=== PATIENT | male | born 2000 | race Caucasian/White ===

== ENCOUNTER 2024-05-22 07:46 | Emergency (ER) | payer OTHER, SELFPAY ==
[2024-05-22 07:55] VITALS: BP 121/82; PULSE 85; RESP 18; TEMP 36.9; O2SAT 100; BMI 26.1
--- NOTE | 2024-05-22 08:09 | ED_ITS ---
HPI - Back Pain/Injury General Chief Complaint: Back Pain/Injury Stated Complaint: Back pain 7 days getting worse Time Seen by Provider: 05/22/24 08:01 Source: patient History of Present Illness HPI Narrative: Patient drove self here. Complains of continuous constant low back pain despite seeing walk-in clinic being provided Toradol and muscle relaxers. No known injury. No fever chills. No diabetes chemotherapy IV drug use. Low risk factors for abscess diskitis. No prior history of back pain or surgery. No bowel or bladder incontinence. No leg numbness tingling or weakness. Patient in shorts. Patient was seen at the clinic about a week ago. Toradol intramuscular medication was given and it did help for the 1st 3 days. Pain is worse with laying flat and walking. Prefers to sit. No saddle paresthesia. No bowel or bladder incontinence or retention Related Data Previous Rx's Medication Instructions Recorded baclofen 20 mg tablet 20 mg PO TID PRN pain (scale score 05/22/24 4-6) #20 tabs methylprednisolone 4 mg tablets in See Rx Instructions PO .COMPLEX 05/22/24 a dose pack (Medrol (Ajay)) #21 ea Allergies Allergy/AdvReac Type Severity Reaction Status Date / Time No Known Drug Allergies Allergy Verified 05/22/24 08:02 Review of Systems Review of Systems Narrative: GENERAL: Negative chills, fatigue, malaise, fever, sweats. HEENT: Negative sinus pain, ear pain, sore throat RESPIRATORY: Negative dyspnea, cough CARDIOVASCULAR: Negative chest pain, palpitations GASTROINTESTINAL: Negative nausea, vomiting, abdominal pain : Negative dysuria, frequency, hematuria MUSCULOSKELETAL: Positive back, muscle or bony pain SKIN: Negative rash, skin lesions NEUROLOGIC: Negative weakness, numbness ROS Unobtainable: All systems reviewed & are unremarkable except as noted in HPI and below Patient History Social History Smoking Status: Current every day smoker Smoking Status: Current every day smoker tobacco type: vaping Alcohol type: beer Exam Narrative Exam Narrative: GENERAL: in no distress, not toxic not dyspneic HEAD: Normocephalic. EYES: Pupils equal round ENT: Mucous membranes moist. NECK: Trachea midline. CARDIOVASCULAR: Regular rate and rhythm RESPIRATORY: Clear to auscultation. Breath sounds equal bilaterally. No wheezes, rales, or rhonchi. GASTROINTESTINAL: Abdomen soft, non-tender EXTREMITIES: No gross deformities. BACK: No flank tenderness. There is reproducible bilateral low paralumbar muscle tenderness. No midline tenderness or step-off of the thoracic or lumbar spine. Increased pain with side bending left and right and increased pain with leaning forward. NEURO: AOx4. Clear speech, slowly steady gait no foot drop light touch intact bilateral legs strong equal bilateral patellar reflexes and ankle flexion and extension.. Increased pain with straight leg raise 90? in the seated position bilaterally. SKIN: Warm and dry PSYCH: Not anxious, is cooperative Initial Vital Signs Initial Vital Signs: Vital Signs Temperature 98.4 F 05/22/24 07:55 Pulse Rate 85 05/22/24 07:55 Respiratory Rate 18 05/22/24 07:55 Blood Pressure 121/82 05/22/24 07:55 Pulse Oximetry 100 05/22/24 07:55 Oxygen Delivery Method Room Air 05/22/24 07:55 Course Orders Ordered: Discontinued Medications Ketorolac Tromethamine (Ketorolac 30 Mg/Ml Vial) 30 mg IM NOW ONE Stop: 05/22/24 08:09 Last Admin: 05/22/24 08:15 Dose: 30 mg Documented By: MARY Prednisone (Prednisone 20 Mg Tablet) 40 mg PO NOW ONE Stop: 05/22/24 08:09 Last Admin: 05/22/24 08:15 Dose: 40 mg Documented By: MARY Vital Signs Vital signs: Vital Signs - 8 hr 05/22/24 07:55 Temperature 98.4 F Pulse Rate 85 Respiratory Rate 18 Blood Pressure 121/82 Pulse Oximetry 100 Oxygen Delivery Method Room Air MDM - Back Pain/Injury Imaging Data MRI lumbar spine: Radiologist's Impression: [place] [address] Magnetic Resonance Report Signed Patient: Breezy Damon MR#: [id number] : 2000 Acct:[id number] Age/Sex: 24 / M Date of Service: 05/22/24 Loc: ED Accession Number: [id number] Procedure: MR lumbar spine wo con Ordering Provider: Xiang Salgado MD PROCEDURE: MR LUMBAR SPINE WO CON INDICATIONS: Low back pain/leg weakness TECHNIQUE: Noncontrast sagittal T1 spin echo and T2 fast echo, sagittal STIR, and T2 fast spin echo through the lumbar spine. In cases with scoliosis, additional coronal T2 fast spin echo may be performed. COMPARISON: None. FINDINGS: Image quality: Excellent. Alignment and Curvature: Trace retrolisthesis of L5 on S1. Bone Marrow: Marrow is of normal overall signal. No acute vertebral body compression fractures. Spinal Cord: Conus medullaris terminates at the L1 level. Visualized cord demonstrates normal signal and size. Paraspinous Soft Tissues: No paravertebral masses. T12-L1: No disc bulge, spinal stenosis or foraminal narrowing. L1-L2: No disc bulge, spinal stenosis or foraminal narrowing. L2-L3: No disc bulge, spinal stenosis or foraminal narrowing. L3-L4: No disc bulge, spinal stenosis or foraminal narrowing. L4-L5: No disc bulge, spinal stenosis or foraminal narrowing. L5-S1: Minimal disc bulge without spinal stenosis or foraminal narrowing. IMPRESSION: Minimal disc bulge at L5-S1 and [facility] Narrative Medical decision making narrative: Patient drove self here. Complains of continuous constant low back pain despite seeing walk-in clinic being provided Toradol and muscle relaxers. No known injury. No fever chills. No diabetes chemotherapy IV drug use. Low risk factors for abscess diskitis. No prior history of back pain or surgery. No bowel or bladder incontinence. No leg numbness tingling or weakness. Patient in shorts. Patient was seen at the clinic about a week ago. Toradol in tramuscular medication was given and it did help for the 1st 3 days. Pain is worse with laying flat and walking. Prefers to sit. No saddle paresthesia. No bowel or bladder incontinence or retention After history and exam, no blood work indicated at this time. No fever chills no risk factors for infection. MRI lumbar spine Toradol prednisone ordered. Patient has no urinary complaints. [facility] Medical records reviewed: Patient seen outside facility walk-in clinic but no notes available Differential considered: Includes but not limited to diskitis epidural abscess herniated disc lumbar strain degenerative disc disease Imaging studies independently reviewed: MRI lumbar spine bulge disc L5-S1 Consultations: None indicated at this time Treatments: Toradol prednisone Re-evaluations: 9:47 a.m.. Patient states pain is nearly gone. Feeling much better after Toradol and prednisone. I will prescribe him Medrol Dosepak. And baclofen. He will discontinue previous prescriptions and medications from other facility. He does have a family doctor to follow up for physical therapy referral. Return precautions reviewed. He desires discharge home. Work note provided. Discussion: Appropriate for discharge home. Patient neurologically intact. Pain is controlled. Return precautions reviewed. He desires discharge home. Diagnosis: Lumbar bulging disc Discharge Plan Departure Patient Disposition: Home Clinical Impression: Bulging lumbar disc Instructions: DI for Herniated Disc Activity Restrictions/Additional Instructions: Please discontinue medications from previous facility. See family doctor next week for re-evaluation and get referral for physical therapy. Continue steroid pack tomorrow. New prescriptions have been provided for you. Return if worse if any questions or concerns. Work note has been provided for you. Prescriptions: New baclofen 20 mg tablet 20 mg PO TID PRN (Reason: pain (scale score 4-6)) Qty: 20 0RF methylprednisolone [Medrol (Ajay)] 4 mg tablets,dose pack See Rx Instructions .ROUTE .COMPLEX Qty: 21 0RF Rx Instructions: orally per package directions Stand Alone Forms: Patient Portal/API/Survey, Work Release Note
[2024-05-22] MEDS: KETOROLAC 30 MG/ML VIAL IM (08:15)
[2024-05-22] MEDS: predniSONE 20 MG TABLET 40 MG PO (08:15)
[2024-05-22 09:55] VITALS: BP 111/84; PULSE 79; O2SAT 99
== END 2024-05-22 09:55 | disposition home or self-care (01) ==
PROVIDERS: Emergency Provider Emergency Medicine
DX: M51.26 Other intervertebral disc displacement, lumbar region (principal); F17.290 Nicotine dependence, other tobacco product, uncomplicated; F10.90 Alcohol use, unspecified, uncomplicated
CPT/HCPCS: 72148; 96372; 99284; J1885

== ENCOUNTER 2024-06-03 19:08 | Emergency (ER) | payer OTHER, SELFPAY ==
[2024-06-03 19:13] VITALS: BP 130/85; PULSE 92; RESP 18; TEMP 36.4; O2SAT 98; BMI 26.0
--- NOTE | 2024-06-03 23:14 | ED.BACK ---
HPI - Back Pain/Injury General Chief Complaint: Back Pain/Injury Stated Complaint: back px, work injury Time Seen by Provider: 06/03/24 23:14 Source: patient, RN notes reviewed and old records reviewed Limitations: no limitations History of Present Illness HPI Narrative: 24-year-old male history of bicuspid valve and PEA surgery remotely with acute on chronic low back pain has had imaging per patient. Presents tonight with request for a shot of pain medication such as Toradol. Patient states seems to be very helpful for several days. He has been taking ibuprofen and/Tylenol muscle relaxers. Patient states has been following with [facility] and I has had imaging. Is in the process of setting up follow-up. Patient states no fevers or chills. No new trauma or injuries. Was at work had accommodations to be LEs lifting and moving but had to sit for about 8 hours and not be upper moving and this seemed also exacerbate his symptoms. He has a little bit of tingling down into the left leg. He denies any other paresthesias. No weakness. No loss of bowel or bladder control no saddle anesthesia. No nausea or vomiting no chest pain shortness of breath or other GI or urinary symptoms. States no known drug allergies. Does use tobacco daily, no alcohol, no recreational or IV drugs. Related Data Previous Rx's Medication Instructions Recorded baclofen 20 mg tablet 20 mg PO TID PRN pain (scale score 05/22/24 4-6) #20 tabs methylprednisolone 4 mg tablets in See Rx Instructions PO .COMPLEX 05/22/24 a dose pack (Medrol (Ajay)) #21 ea Allergies Allergy/AdvReac Type Severity Reaction Status Date / Time No Known Drug Allergies Allergy Verified 06/03/24 19:13 Review of Systems Review of Systems ROS Unobtainable: All systems reviewed & are unremarkable except as noted in HPI and below Patient History Social History Smoking Status: Current every day smoker Smoking Status: Current every day smoker tobacco type: vaping Alcohol type: beer Exam Narrative Exam Narrative: GENERAL: Alert and oriented x three, male in [id number] distress. HEENT: Head normocephalic, atraumatic, EOMI, pupils reactive, face symmetric, moist mucous membranes NECK: Supple, full range of motion CARDIOVASCULAR: Regular rate and rhythm without murmurs, rubs or gallops. RESPIRATORY: Breath sounds equal bilaterally, no wheezes rales or rhonchi. ABDOMEN: Soft, nontender. Normoactive bowel sounds all 4 quadrants. No guarding or rebound, rigidity, no mass : No CVA tenderness BACK: No cervical, thoracic or lumbar vertebral point tenderness. Patient has a little bit of increased tenderness in the right just lateral to the lower lumbar region at L5. Patient has mildly decreased range of motion. Patient's gait is normal. Rectal exam is deferred. Muscle strength is 5/5 in lower extremities, DTRs are 2/4 and lower extremities. Dorsalis pedis and tibialis pulses are 2+ and lower extremities. Sensation is intact in the lower extremities. EXTREMITIES: Normal range of motion, no clubbing or edema. Neurovascularly intact NEUROLOGICAL: Cranial nerves II through XII grossly intact. Moving all extremities SKIN: Warm, dry, no petechiae, no rashes or lesions. Initial Vital Signs Initial Vital Signs: Vital Signs Temperature 97.6 F 06/03/24 19:13 Pulse Rate 92 H 06/03/24 19:13 Respiratory Rate 18 06/03/24 19:13 Blood Pressure 130/85 06/03/24 19:13 Pulse Oximetry 98 06/03/24 19:13 Oxygen Delivery Method Room Air 06/03/24 19:13 Course Orders Ordered: Discontinued Medications Ketorolac Tromethamine (Ketorolac 30 Mg/Ml Vial) 30 mg IM NOW ONE Stop: 06/03/24 23:37 Last Admin: 06/03/24 23:47 Dose: 30 mg Documented By: NEDA Vital Signs Vital signs: Vital Signs - 8 hr 06/04/24 00:01 Pulse Rate 85 Respiratory Rate 20 Blood Pressure 138/73 Pulse Oximetry 97 MDM - Back Pain/Injury MDM Narrative Medical decision making narrative: 24-year-old male with a acute on chronic back pain had MR imaging, MR spine without contrast on 05/22/2024 which showed minimal disc bulge at L5-S1. Patient does not have any new red flag symptoms today. He was in process of setting up follow up. Crusting a shot of Toradol as he finds it very helpful for a couple days with a his pain. Feels like it was exacerbated by sitting for prolonged periods as he has had his work restrictions which has been helpful but caused him to sit for about 8 hours in a row. Discussed return precautions. Patient has been taking Tylenol and ibuprofen as well as muscle relaxer. Patient received Toradol IM. Discharge Plan Departure Patient Disposition: Home Clinical Impression: Low back pain Instructions: DI for Low Back Pain Activity Restrictions/Additional Instructions: Continue with your current treatments at home. I hope you are follow up visit is helpful for your symptoms. Please return for fevers, rapidly worsening pain, new numbness, weakness or loss of sensation, inability to lift or move your leg, loss of bowel or bladder control, persistent vomiting or other new or concerning changes. Prescriptions: No Action baclofen 20 mg tablet 20 mg PO TID PRN (Reason: pain (scale score 4-6)) Qty: 20 0RF methylprednisolone [Medrol (Ajay)] 4 mg tablets,dose pack See Rx Instructions .ROUTE .COMPLEX Qty: 21 0RF Rx Instructions: orally per package directions Referrals: Miscellaneous,Doctor, MD [Primary Care Provider] - Stand Alone Forms: Patient Portal/API/Survey, Work Release Note
[2024-06-03] MEDS: KETOROLAC 30 MG/ML VIAL IM (23:47)
[2024-06-04 00:01] VITALS: BP 138/73; PULSE 85; RESP 20; O2SAT 97
== END 2024-06-03 23:56 | disposition home or self-care (01) ==
PROVIDERS: Emergency Provider Emergency Medicine
DX: M54.50 Low back pain, unspecified (principal)
CPT/HCPCS: 96372; 99283; J1885